=== PATIENT | female | born 1980 | race Native Hawaiian/Other Pacific Islander ===

== ENCOUNTER 2016-07-11 17:21 | Emergency (ER) | payer OTHER ==
[~2016-07-11] VITALS: Ht 172.7 cm; Wt 102.1 kg
[2016-07-11 17:33] VITALS: BP 170/112; TEMP 98
== END 2016-07-11 18:35 | disposition left against medical advice (07) ==
LOC: ED 17:21
DX: I10 Essential (primary) hypertension (principal)
CPT/HCPCS: 99282

== ENCOUNTER 2016-09-19 14:33 | Outpatient (CLI) | payer OTHER ==
[2016-09-19 14:55] LABS: PLATELET COUNT 231 K/uL (152-353)
[2016-09-19 15:10] LABS: SODIUM 135 mmol/L (136-145)
== END 2016-09-19 15:45 | disposition home or self-care (01) ==
LOC: LABW 14:33
PROVIDERS: Internal Medicine
DX: N39.0 Urinary tract infection, site not specified (principal)
CPT/HCPCS: 36415; 80053; 85027; 87086; 87088

== ENCOUNTER 2016-10-14 11:39 | Outpatient (CLI) | payer OTHER ==
[2016-10-14 12:33] LABS: POTASSIUM 4.1 mmol/L (3.6-5.2); SODIUM 136 mmol/L (136-145)
[2016-10-14 12:35] LABS: PLATELET COUNT 235 K/uL (152-353)
== END 2016-10-14 12:45 | disposition home or self-care (01) ==
LOC: LABW 11:39 → US 11:39 → LABW 12:45
PROVIDERS: Internal Medicine
DX: M79.89 Other specified soft tissue disorders (principal); R21 Rash and other nonspecific skin eruption
CPT/HCPCS: 36415; 80053; 85027; 85651

== ENCOUNTER 2017-10-19 12:34 | Outpatient (CLI) | payer OTHER | END 2017-10-19 13:15 | disposition short-term general hospital (02) | LOC: AMB 12:34 | DX: S83.195A Other dislocation of left knee, initial encounter (principal); M25.562 Pain in left knee; W18.39XA Other fall on same level, initial encounter; Y92.096 Garden or yard of other non-institutional residence as the place of occurrence of the external cause | CPT/HCPCS: A0425; A0427 ==

== ENCOUNTER 2018-01-09 14:37 | Outpatient (CLI) | payer OTHER ==
[2018-01-09 15:09] LABS: PLATELET COUNT 231 K/uL (152-353)
[2018-01-09 15:33] LABS: POTASSIUM 3.8 mmol/L (3.6-5.2)
== END 2018-01-09 19:09 | disposition home or self-care (01) ==
LOC: LABW 14:37
PROVIDERS: Physician Assistant
DX: R05 Cough (principal); R60.0 Localized edema; Z86.2 Personal history of diseases of the blood and blood-forming organs and certain disorders involving the immune mechanism
CPT/HCPCS: 36415; 80053; 81000; 82607; 83735; 84439; 84443; 85027

== ENCOUNTER 2019-05-19 18:57 | Outpatient (CLI) | payer OTHER | END 2019-05-19 22:37 | disposition home or self-care (01) | LOC: LABW 18:57 | DX: R30.0 Dysuria (principal) | CPT/HCPCS: 87086; 87088 ==

== ENCOUNTER 2019-10-07 08:45 | Outpatient (CLI) | payer OTHER ==
[2019-10-07 09:55] LABS: PLATELET COUNT 252 K/uL (152-353)
== END 2019-10-07 21:35 | disposition home or self-care (01) ==
LOC: LABW 08:45
PROVIDERS: Internal Medicine
DX: I10 Essential (primary) hypertension (principal)
CPT/HCPCS: 36415; 80053; 80061; 81000; 81025; 83735; 84439; 84443; 85027

== ENCOUNTER 2020-11-21 07:26 | Outpatient (CLI) | payer OTHER ==
[2020-11-21 08:16] LABS: PLATELET COUNT 215 K/uL (152-353)
[2020-11-21 08:25] LABS: POTASSIUM 3.9 mmol/L (3.6-5.2)
== END 2020-11-21 19:17 | disposition home or self-care (01) ==
LOC: LABW 07:26
PROVIDERS: ATTEND Internal Medicine
DX: I10 Essential (primary) hypertension (principal); R53.83 Other fatigue
CPT/HCPCS: 36415; 80053; 80061; 81000; 84439; 84443; 85027; 86038

== ENCOUNTER 2021-03-07 09:07 | Outpatient (CLI) | payer OTHER | END 2021-03-07 20:14 | disposition home or self-care (01) | LOC: RAD 09:07 | PROVIDERS: ATTEND Internal Medicine | DX: R05.9 Cough, unspecified (principal) ==

== ENCOUNTER 2021-03-14 15:58 | Outpatient (CLI) | payer OTHER | END 2021-03-14 20:32 | disposition home or self-care (01) | LOC: CT 15:58 | PROVIDERS: ATTEND Internal Medicine | DX: R05.9 Cough, unspecified (principal) ==

== ENCOUNTER 2021-08-07 07:37 | Outpatient (CLI) | payer OTHER ==
[2021-08-07 07:59] LABS: PLATELET COUNT 231 K/uL (152-353)
[2021-08-07 08:44] LABS: POTASSIUM 3.8 mmol/L (3.6-5.2)
== END 2021-08-07 19:36 | disposition home or self-care (01) ==
LOC: LABW 07:37
PROVIDERS: ATTEND Internal Medicine
DX: R30.0 Dysuria (principal); I10 Essential (primary) hypertension
CPT/HCPCS: 36415; 80053; 80061; 81000; 84439; 84443; 85027; 87086; 87088

== ENCOUNTER 2022-06-04 13:56 | Outpatient (CLI) | payer OTHER | END 2022-06-04 22:05 | LOC: MRI 13:56 | PROVIDERS: ATTEND Internal Medicine | DX: R51.9 Headache, unspecified (principal) | CPT/HCPCS: 36415; 82565; 84520; A9576 ==

== ENCOUNTER 2022-12-21 08:04 | Outpatient (CLI) | payer OTHER ==
[2022-12-21 08:29] LABS: PLATELET COUNT 236 K/uL (152-353)
[2022-12-21 08:43] LABS: POTASSIUM 3.6 mmol/L (3.6-5.2)
== END 2022-12-21 23:20 | disposition home or self-care (01) ==
LOC: LABW 08:04
PROVIDERS: ATTEND Internal Medicine
DX: I10 Essential (primary) hypertension (principal)
CPT/HCPCS: 36415; 80053; 80061; 81002; 85027